=== PATIENT | male | born 1960 | race Caucasian/White ===

== ENCOUNTER → 2017-10-24 | Outpatient (CLI) | payer BC ==
[~2017-10-24] MED LIST: CELE200; OXYACE5T PO
[2017-10-24 14:11] LABS: Microalb/Creat Ratio UR, Rand 8.197 mg/g (0.000-30.000)
== END ==
LOC: LAB SHORT 12:12 → OLS 12:12
PROVIDERS: Physician Assistant Medical
DX: E78.4 Other hyperlipidemia (principal); E11.9 Type 2 diabetes mellitus without complications; N39.0 Urinary tract infection, site not specified; N40.0 Benign prostatic hyperplasia without lower urinary tract symptoms
CPT/HCPCS: 82043; 82570

== ENCOUNTER 2024-09-29 10:34 | Emergency (ER) | payer BC ==
[~2024-09-29] VITALS: Ht 177.8 cm; Wt 115.7 kg
[2024-09-29 10:58] LABS: BASOPHILS ABSOLUTE AUTO 0.09 K/mm3 (0.00-0.23); BASOPHILS PERCENT AUTO 1 % (0-2); EOSINOPHILS ABSOLUTE AUTO 0.09 K/mm3 (0.00-0.68); EOSINOPHILS PERCENT AUTO 1 % (0-6); Hematocrit 36.5 % (37.0-53.0); Hemoglobin 11.9 g/dL (13.5-17.5); IMMATURE GRAN ABSOLUTE AUTO 0.44 K/mm3 (0.00-0.10); IMMATURE GRAN PERCENT AUTO 4 % (0-1); LYMPHOCYTES ABSOLUTE AUTO 2.38 K/mm3 (0.84-5.20); LYMPHOCYTES PERCENT AUTO 21 % (21-46); MONOCYTES ABSOLUTE AUTO 1.75 K/mm3 (0.16-1.47); MONOCYTES PERCENT AUTO 15 % (4-13); Mean Corpuscular HGB 30.1 pg (26.0-34.0); Mean Corpuscular HGB Conc 32.6 g/dL (31.5-36.5); Mean Corpuscular Volume 92 fL (80-100); Mean Platelet Volume 9.8 fL (9.1-12.4); NEUTROPHILS ABSOLUTE AUTO 6.84 K/mm3 (1.96-9.15); NEUTROPHILS PERCENT AUTO 59 % (41-73); Platelet Count 279 K/mm3 (150-400); RDW Coefficient Variation 14.6 % (11.7-14.2); RDW Standard Deviation 49.2 fL (35.1-46.3); Red Blood Cell Count 3.95 M/mm3 (4.30-5.90); White Blood Cell Count 11.59 K/mm3 (4.00-11.30)
[2024-09-29] MEDS ORDERED: PRED1 PO (11:00)
[2024-09-29] MEDS ORDERED: TELMISARTAN80 MG PO (11:00)
[2024-09-29] MEDS ORDERED: ROSUVASTATIN CA20 MG PO (11:00)
[2024-09-29] MEDS ORDERED: ASPIRIN REGIMEN81 MG PO (11:01)
[2024-09-29] MEDS ORDERED: TOPROL XL50 MG PO (11:01)
[2024-09-29] MEDS ORDERED: CELEBREX200 MG PO (11:02)
[2024-09-29 11:14] LABS: Albumin/Globulin Ratio 0.9 (0.8-1.8); Bilirubin, Total 0.9 mg/dL (0.1-1.0); Bun/Creatinine Ratio 17.9 (12.0-20.0); Calcium, Blood 8.9 mg/dL (8.5-10.1); Creatinine, Blood 0.95 mg/dL (0.60-1.20); Globulin, Blood 3.4 g/dL (2.2-4.0); Total Protein, Blood 6.4 g/dL (6.4-8.2)
[2024-09-29 14:00] VITALS: BP 99/71
[2024-09-29] MEDS ORDERED: NS 500 ML IV SCH (14:05)
[2024-09-29] MEDS ORDERED: Ipratropium/Albuterol SulF 2.5-0.5MG/3 ML Amp INH ONE (14:30)
[2024-09-29] MEDS ORDERED: ALBU90OI INH (15:22)
== END 2024-09-29 15:40 | disposition home or self-care (01) ==
LOC: ER 10:34
PROVIDERS: Emergency Medicine
DX: J98.4 Other disorders of lung (principal); J43.9 Emphysema, unspecified; R06.09 Other forms of dyspnea; Z96.652 Presence of left artificial knee joint
CPT/HCPCS: 71045; 71260; 80053; 83880; 84484; 85025; 85379; 93005; 93010; 94640; 94664; 96360-59; 99285-25; J7030; Q9967